=== PATIENT | male | born 1995 ===

== ENCOUNTER 2016-08-10 12:06 | Emergency (ER) | payer MEDICAID ==
--- NOTE | 2016-08-10 12:53 | RAD ---
Patient: Right ankle pain and injury. 3 views of the right ankle demonstrate soft tissue swelling laterally. No fracture is noted. Ankle mortise is intact. IMPRESSION: Soft tissue swelling without fracture.
--- NOTE | 2016-08-10 13:24 | UC ---
Lower Extremity/Ankle HPI - HPI Summary HPI Summary: TWISTED (INVERSION INJURY OF) RIGHT ANKLE LAST NIGHT WHILE PLAYING BASKETBALL. ( LATERAL) ANKLE SWOLLEN, AND PAIN WITH WEIGHT BEARING. - History of Current Complaint Hx Obtained From: Patient, Family/Planner Internship Onset/Duration: Sudden Onset, Lasting Days, Still Present Severity Initially: Moderate Severity Currently: Moderate Aggravating Factor(s): Standing, Ambulation Alleviating Factor(s): Rest, Elevation, Ice Able to Bear Weight: No - Risk Factors Gout Risk Factors: Negative DVT Risk Factors: Negative Septic Arthritis Risk Factor: Negative <Mateo Pope - Last Filed: 08/10/16 13:21> <Mireya Arreola - Last Filed: 08/10/16 13:49> - History of Current Complaint Chief Complaint: UCLowerExtremity Stated Complaint: ankle injury Time Seen by Provider: 08/10/16 12:20 - Allergies/Home Medications Allergies/Adverse Reactions: Allergies Allergy/AdvReac Type Severity Reaction Status Date / Time Penicillins [PCN] Allergy Rash Verified 08/10/16 12:08 Home Medications: Home Medications NK [No Home Medications Reported] 08/10/16 [History Confirmed 08/10/16] PMH/Surg Hx/FS Hx/Imm Hx Previously Healthy: Yes - Surgical History Surgical History: Yes - Family History Known Family History: Negative: Other - NO FAMILY HISTORY OF JOINT LAXITY OR CONNECTIVE TISSUE DISORDERS - Social History Occupation: Employed Full-time Lives: With Family Alcohol Use: None Substance Use Type: None Smoking Status (MU): Light Every Day Tobacco Smoker <Mateo Pope - Last Filed: 08/10/16 13:21> Review of Systems Constitutional: Negative Skin: Negative Eyes: Negative ENT: Negative Respiratory: Negative Cardiovascular: Negative Gastrointestinal: Negative Genitourinary: Negative Motor: Negative Neurovascular: Negative Musculoskeletal: Arthralgia, Edema, Myalgia Neurological: Negative Psychological: Negative All Other Systems Reviewed And Are Negative: Yes <Mateo Pope - Last Filed: 08/10/16 13:21> Physical Exam Triage Information Reviewed: Yes Appearance: Well-Appearing, No Pain Distress, Well-Nourished Vital Signs: Initial Vital Signs Temp 98 F 08/10/16 12:09 Pulse 59 08/10/16 12:09 Resp 18 08/10/16 12:09 BP 140/69 08/10/16 12:09 Pulse Ox 100 08/10/16 12:09 Vital Signs Reviewed: Yes Eye Exam: Normal ENT Exam: Normal ENT: Positive: Normal ENT inspection, Hearing grossly normal, TMs normal Dental Exam: Normal Neck exam: Normal Neck: Positive: Supple, Nontender, No Lymphadenopathy Respiratory Exam: Normal Respiratory: Positive: Chest non-tender, Lungs clear Cardiovascular Exam: Normal Cardiovascular: Positive: RRR, No Murmur Abdominal Exam: Normal Musculoskeletal: Positive: Strength Limited @ - RIGHT ANKLE, ROM Limited @ - RIGHT ANKLE, Edema @ - RIGHT ANKLE Neurological Exam: Normal Psychological Exam: Normal Skin Exam: Normal <Mateo Pope - Last Filed: 08/10/16 13:21> Vital Signs: Initial Vital Signs Temp 98 F 08/10/16 12:09 Pulse 59 08/10/16 12:09 Resp 18 08/10/16 12:09 BP 140/69 08/10/16 12:09 Pulse Ox 100 08/10/16 12:09 <Mireya Arreola - Last Filed: 08/10/16 13:49> Lower Extremity Course/Dx - Differential Dx/Diagnosis Differential Diagnosis/HQI/PQRI: Fracture (Closed), Sprain, Strain Provider Diagnoses: RIGHT ANKLE SPRAIN <Mateo Pope - Last Filed: 08/10/16 13:21> Discharge <Mateo Pope - Last Filed: 08/10/16 13:21> <Mireya Arreola - Last Filed: 08/10/16 13:49> - Discharge Plan Condition: Stable Disposition: HOME Patient Education Materials: Ankle Sprain (ED) Forms: *Work Release Referrals: [facility] [Outside] Non Staff,Doctor [Primary Care Provider] - Additional Instructions: PHYSICAL THERAPY REFERRAL: You have been prescribed physical therapy. Treatments may include stretching, exercise, application of heat or cold, and other modalities. After an injury, PT can reduce swelling and pain. In recovery, PT is used to restore mobility and strength. Your specific treatment goals are: ___X__ Reduction of Swelling (EGS, US, ice as needed) ____X_ Pain Reduction (EGS, US, ice as needed) TENS Pack Fitting and Instruction Wound Hydrotherapy ___X__ Preservation of Mobility ___X__ Temple of Mobility ___X__ Strength Temple ___X__ Work or Sports Hardening This instruction sheet also serves as your PHYSICAL THERAPY REFERRAL! Please take it with you to the therapist, so he/she will be aware of your diagnosis and treatment plan. You may see the physical therapist of your choice for these treatments, but may wish to check with your insurance to be sure the provider you select is covered. It's important to see the doctor to whom you have been referred for follow up. Attestation Statement User Type: Provider - I was available for consult. This patient was seen by the [facility]. The patient was not presented to, seen by, or examined by me. -Jian <Mireya Arreola - Last Filed: 08/10/16 13:49>
== END 2016-08-10 13:16 | disposition home or self-care (01) ==
LOC: UCEAST 12:06
DX: S93.401A Sprain of unspecified ligament of right ankle, initial encounter (principal); X50.1XXA Overexertion from prolonged static or awkward postures, initial encounter; Y93.67 Activity, basketball; Y92.310 Basketball court as the place of occurrence of the external cause; Z88.0 Allergy status to penicillin; F17.210 Nicotine dependence, cigarettes, uncomplicated
CPT/HCPCS: 99203; G0463